=== PATIENT | female | born 1970 | race African-American/Black ===

== ENCOUNTER 2018-03-21 11:43 | Emergency (ER) | payer MEDICARE ==
--- NOTE | 2018-03-21 12:10 | ER Document Report ---
ED Dizziness/Weakness - General Chief Complaint: Weakness Stated Complaint: WEAKNESS Time Seen by Provider: 03/21/18 12:00 Notes: This is a 47-year-old female patient with multiple medical problems presents emergency department for evaluation of weakness. Here from [place]. Had multiple strokes in the past. Has had aneurysm. Has shunt. Has severe hypertension. Baseline renal failure. Not on dialysis. Chronic headaches. Noncompliant with medications. Denies any fever, chills, sweats. No difficulty with speech. No slurred speech. No focal weakness. Just feels tired. TRAVEL OUTSIDE OF THE [place] IN LAST 30 DAYS: No - HPI Patient complains to provider of: Weakness Quality of pain: No pain Severity: Mild Pain Level: 0 Associated symptoms: denies: Confused, Fainted, Headache, Lightheaded, Palpitations, Paralysis, Short of breath - Related Data Allergies/Adverse Reactions: Penicillins Allergy (Verified 03/21/18 11:45) Past Medical History - General Information source: Patient - Social History Smoking Status: Never Smoker Smoking Education Provided: No Drug Abuse: None Lives with: Alone Family History: Reviewed & Not Pertinent Review of Systems - Review of Systems Constitutional: No symptoms reported EENT: No symptoms reported Cardiovascular: No symptoms reported Respiratory: No symptoms reported Gastrointestinal: No symptoms reported Genitourinary: No symptoms reported Female Genitourinary: No symptoms reported Musculoskeletal: No symptoms reported Skin: No symptoms reported Hematologic/Lymphatic: No symptoms reported Neurological/Psychological: Weakness. denies: Confusion, Depression, Anxiety, Hallucinations Physical Exam - Vital signs Vitals: Pulse Resp BP Pulse Ox 83 18 148/105 H 100 03/21/18 11:50 03/21/18 11:50 03/21/18 11:50 03/21/18 11:50 Interpretation: Normal - General General appearance: Appears well, Alert - HEENT Head: Normocephalic, Atraumatic Eyes: Normal Pupils: PERRL - Respiratory Respiratory status: No respiratory distress Chest status: Nontender Breath sounds: Normal Chest palpation: Normal - Cardiovascular Rhythm: Regular Heart sounds: Normal auscultation Murmur: No - Abdominal Inspection: Normal Distension: No distension Bowel sounds: Normal Tenderness: Nontender Organomegaly: No organomegaly - Back Back: Normal, Nontender - Extremities General upper extremity: Normal inspection, Nontender, Normal color, Normal ROM , Normal temperature General lower extremity: Normal inspection, Nontender, Normal color, Normal ROM , Normal temperature, Normal weight bearing. No: Hadley's sign - Neurological Neuro grossly intact: Yes Cognition: Normal Orientation: AAOx4 [place] Coma Scale Eye Opening: Spontaneous [place] Coma Scale Verbal: Oriented [place] Coma Scale Motor: Obeys Commands Tabatha Coma Scale Total: 15 Speech: Normal Cranial nerves: Normal Cerebellar coordination: Normal Motor strength normal: LUE, RUE, LLE, RLE Additional motor exam normals: Equal director intelligence analysis programs. No: Pronator drift, Weakness Sensory: Normal - Psychological Associated symptoms: Normal affect, Normal mood - Skin Skin Temperature: Warm Skin Moisture: Dry Skin Color: Normal Course - Re-evaluation Re-evalutation: 03/21/18 14:25 Patient has complicated history. Based on renal insufficiency. Negative CT scan for any acute pathology. No head bleed. Has shunt in place but no midline shift. Patient is quite hypertensive. We will give her some medication at this time the lower blood pressure. Will attempt to get records from [place]. 03/21/18 14:51 Find nothing acute with this patient at this time other than some chronic findings. Has some chronic renal insufficiency but no hyperkalemia. No significant findings on CT scan which would represent an acute stroke. Physical exam findings do not support an acute stroke. Patient does have uncontrolled hypertension. Awaiting urinalysis results and will reassess at this time. Still do not have outside records. 03/21/18 15:46 Patient states that she has feels much better at this time. Admits that she has not been taking her clonidine which she normally does. Blood pressure was high and thinks this is why she was feeling weak all over. Also she admits now that she has been taking some Bactrim for chronic UTI. Has been unable to give us a urine sample but patient is adamant that she wants to go home. At this time I will refill her prescription for clonidine. Will attempt one more time to get a urinalysis if not we will discharge her at this time. - Vital Signs Vital signs: Temp Pulse Resp BP Pulse Ox 83 18 148/105 H 100 03/21/18 12:05 03/21/18 12:05 03/21/18 11:50 03/21/18 13:28 - Laboratory Result Diagrams: 03/21/18 13:06 03/21/18 13:06 Laboratory results interpreted by me: 03/21/18 03/21/18 13:06 13:06 WBC 2.9 L RBC 3.56 L Hgb 10.9 L Hct 32.6 L RDW 14.3 H Plt Count 125 L Sodium 145.4 H Chloride 110 H BUN 44 H Creatinine 2.71 H Est GFR ( Amer) 23 L Est GFR (Non-Af Amer) 19 L Direct Bilirubin 0.5 H Total Protein 8.6 H Discharge - Discharge Clinical Impression: Weakness Condition: Good Disposition: HOME, SELF-CARE Instructions: Weakness ([facility]), High Blood Pressure, Requiring Treatment ([facility]) Prescriptions: Clonidine HCl 0.1 mg PO DAILY 90 Days #90 tablet Referrals: ISMAEL MOTA MD [ACTIVE STAFF] - Follow up as needed
--- NOTE | 2018-03-21 12:15 | RADIOLOGY REPORT (SQ) ---
EXAM DESCRIPTION: CT HEAD WITHOUT COMPLETED DATE/TIME: 03/21/2018 12:00 pm REASON FOR STUDY: bed 19 stroke alert COMPARISON: None. TECHNIQUE: Axial images acquired through the brain without intravenous contrast. Images reviewed wi th bone, brain and subdural windows. Additional sagittal and coronal reconstructions were generated. Images stored on PACS. All CT scanners at this facility use dose modulation, iterative reconstruction, and/or weight based d osing when appropriate to reduce radiation dose to as low as reasonably achievable (ALARA). [facility]: Dose Right [facility]: CareDose [facility]: Dose Right [facility]: Teradose 4D [facility]: [facility] RADIATION DOSE: CT Rad equipment meets quality standard of care and radiation dose reduction techniq ues were employed. CTDIvol: 53.2 mGy. DLP: 1177 mGy-cm. mGy. LIMITATIONS: None. FINDINGS: VENTRICLES: Prominent. There is a shunt catheter entering from the left frontal lobe with the catheter tip in the 3rd ventricle. CEREBRUM: Geographic low attenuation in the right parietooccipital lobe most consistent with chronic infarct. No evidence of hemorrhage. No obvious acute infarct. CEREBELLUM: No masses. No hemorrhage. No alteration of density. No evidence for acute infarction. EXTRAAXIAL SPACES: No fluid collections. No masses. ORBITS AND GLOBE: No intra- or extraconal masses. Normal contour of globe without masses. CALVARIUM: No fracture. PARANASAL SINUSES: No fluid or mucosal thickening. SOFT TISSUES: No mass or hematoma. OTHER: No other significant finding. IMPRESSION: Old right MACHINE SPRAYER territory infarct. EVIDENCE OF ACUTE STROKE: NO. COMMENT: Pertinent positive or negative findings of the imaging study reported as a CRITICAL EXAM t o DR Snider at12:09 on 03/21/2018. Category of Critical Exam: Stroke alert Quality ID # [id number]: Final reports with documentation of one or more dose reduction techniques (e.g., Au tomated exposure control, adjustment of the mA and/or kV according to patient size, use of iterative reconstruction technique) TECHNICAL DOCUMENTATION: JOB ID: [id number] [employer]- All Rights Reserved Reading location - IP/workstation name: [email or web address]
--- NOTE | 2018-03-21 13:03 | RADIOLOGY REPORT (SQ) ---
EXAM DESCRIPTION: CHEST SINGLE VIEW COMPLETED DATE/TIME: 03/21/2018 12:33 pm REASON FOR STUDY: bed 19 stroke alert COMPARISON: None. EXAM PARAMETERS: NUMBER OF VIEWS: One view. TECHNIQUE: Single frontal radiographic view of the chest acquired. RADIATION DOSE: NA LIMITATIONS: None. FINDINGS: LUNGS AND PLEURA: No opacities, masses or pneumothorax. No pleural effusion. MEDIASTINUM AND HILAR STRUCTURES: No masses. Contour normal. HEART AND VASCULAR STRUCTURES: Heart normal in size. Normal vasculature. BONES: No acute findings. 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 OTHER: No other significant finding. IMPRESSION: NO ACUTE RADIOGRAPHIC FINDING IN THE CHEST. TECHNICAL DOCUMENTATION: JOB ID: [id number]- All Rights Reserved Reading location - IP/workstation name: [email or web address]
[2018-03-21 13:26] LABS: ABSOLUTE LYMPHOCYTES (AUTO) 0.6 10^3/uL (0.5-4.7); ABSOLUTE MONOCYTES (AUTO) 0.2 10^3/uL (0.1-1.4); ABSOLUTE NEUT (AUTO) 2.1 10^3/uL (1.7-8.2); BASOPHILS % (AUTO) 0.4 % (0-2); HEMATOCRIT 32.6 % (36.0-47.0); HEMOGLOBIN 10.9 g/dL (12.0-15.5); LYMPHOCYTES % (AUTO) 20.2 % (13-45); MEAN CORPUSCULAR HEMOGLOBIN 30.6 pg (27.0-33.4); MEAN CORPUSCULAR HGB CONC 33.4 g/dL (32.0-36.0); MEAN CORPUSCULAR VOLUME 92 fl (80-97); MONOCYTES % (AUTO) 8.4 % (3-13); PLATELET COUNT 125 10^3/uL (150-450); RED BLOOD COUNT 3.56 10^6/uL (3.72-5.28); RED CELL DISTRIBUTION WIDTH 14.3 % (11.5-14.0); TOTAL CELLS COUNTED % (AUTO) 100 %; WHITE BLOOD COUNT 2.9 10^3/uL (4.0-10.5)
[2018-03-21 13:33] LABS: INTERNATIONAL RATION (INR) 0.97; PROTHROMBIN TIME 13.4 SEC (11.4-15.4)
[2018-03-21 13:34] LABS: PARTIAL THROMBOPLASTIN TIME 31.4 SEC (23.5-35.8)
[2018-03-21 13:44] LABS: ALANINE AMINOTRANSFERASE 15 U/L (9-52); ALBUMIN 4.3 g/dL (3.5-5.0); ALKALINE PHOSPHATASE 46 U/L (38-126); ANION GAP 12 (5-19); ASPARTATE AMINO TRANSFERASE 19 U/L (14-36); BILIRUBIN,DIRECT 0.5 mg/dL (0.0-0.4); BILIRUBIN,TOTAL 0.9 mg/dL (0.2-1.3); BLOOD UREA NITROGEN 44 mg/dL (7-20); CALCIUM 9.7 mg/dL (8.4-10.2); CARBON DIOXIDE 23 mmol/L (22-30); CHLORIDE 110 mmol/L (98-107); CREATINE KINASE 35 U/L (30-135); GLUCOSE 88 mg/dL (75-110); POTASSIUM 4.2 mmol/L (3.6-5.0); SODIUM 145.4 mmol/L (137-145); TOTAL PROTEIN 8.6 g/dL (6.3-8.2)
[2018-03-21 14:02] LABS: CREATINE KINASE MB 0.84 ng/mL (<4.55)
[2018-03-21 14:03] LABS: TROPONIN I < 0.012 ng/mL
[2018-03-21] MEDS ORDERED: CLONIDINE HCL 0.1 MG TABLET PO ONE (14:22)
[2018-03-21 16:07] LABS: APPEARANCE,URINE SLIGHTLY-CLOUDY; BILIRUBIN,URINE NEGATIVE (NEGATIVE); COLOR,URINE YELLOW; GLUCOSE, URINE NEGATIVE (NEGATIVE); KETONES,URINE NEGATIVE (NEGATIVE); LEUKOCYTE ESTERASE,URINE SMALL (NEGATIVE); NITRITE,URINE NEGATIVE (NEGATIVE); PROTEIN,URINE 100 mg/dL (NEGATIVE); URINE SPECIFIC GRAVITY 1.013
[2018-03-21 16:17] VITALS: BP 152/78
--- NOTE | 2018-03-22 00:20 | EKG REPORT ---
SEVERITY:- ABNORMAL ECG - SINUS RHYTHM PROBABLE LVH WITH SECONDARY REPOL ABNRM : Confirmed by: Agueda Diaz MD 22-Mar-2018 00:19:47
== END 2018-03-21 16:27 | disposition home or self-care (01) ==
LOC: ER 11:43
DX: R53.1 Weakness (principal); Z88.0 Allergy status to penicillin
CPT/HCPCS: 93005; 99285; 36415; 87086; 82553; 82550; 85025; 85610; 85730; 87088; 80053; 81001; 84484; 87186; 71045; 70450; 93010; A9270

== ENCOUNTER 2018-04-03 20:11 | Emergency (ER) | payer MEDICARE, MEDICAID ==
--- NOTE | 2018-04-03 20:45 | ER Document Report ---
ED Medical Screen (RME) - General Chief Complaint: Possible Overdose Stated Complaint: POSSIBLE OD Time Seen by Provider: 04/03/18 20:41 Mode of Arrival: Ambulatory Information source: Patient, Relative Notes: Patient is a 39-year-old female who presents with her daughter and son-in-law for possible overdose. Family reports that they found her shaking with multiple medications and empty pill bottles near her. They report that she had a prescription for zaleplon filled yesterday, they report the prescription was 10 mg tablets, total quantity 15 tablets and reports that all of this medication is gone now. Patient also may have taken an unknown amount of her clonidine, unknown dosage. Family members report that she just moved here 2 weeks ago from [place] and has not been acting right. Family members report history of lupus, hypertension, seizures, brain shunt, hepatitis and multiple strokes. Patient is able to state her full name, her daughter's name and that we are at a hospital but is unsure of the date or what city we are in. Exam: Alert and oriented 2. Lung sounds clear to auscultation. Heart sounds S1-S2 present no ectopy noted. I have greeted and performed a rapid initial assessment of this patient. A comprehensive ED assessment and evaluation of the patient, analysis of test results and completion of the medical decision making process will be conducted by additional ED providers. Dictation of this chart was performed using voice recognition software; therefore, there may be some unintended grammatical errors. TRAVEL OUTSIDE OF THE [place] IN LAST 30 DAYS: No - Related Data Allergies/Adverse Reactions: Penicillins Allergy (Verified 03/21/18 11:45) Past Medical History - Social History Frequency of alcohol use: None Drug Abuse: None Renal/ Medical History: Denies: Hx Peritoneal Dialysis Physical Exam - Vital signs Vitals: Temp Pulse Resp BP Pulse Ox 99.9 F 118 H 16 224/131 H 100 04/03/18 20:25 04/03/18 20:25 04/03/18 20:25 04/03/18 20:25 04/03/18 20:25 Course - Vital Signs Vital signs: Temp Pulse Resp BP Pulse Ox 99.9 F 118 H 16 224/131 H 100 04/03/18 20:25 04/03/18 20:25 04/03/18 20:25 04/03/18 20:25 04/03/18 20:25
--- NOTE | 2018-04-03 22:45 | RADIOLOGY REPORT (SQ) ---
EXAM DESCRIPTION: CT HEAD WITHOUT COMPLETED DATE/TIME: 04/03/2018 10:23 pm REASON FOR STUDY: AMS COMPARISON: 03/21/2018 TECHNIQUE: Axial images acquired through the brain without intravenous contrast. Images reviewed wi th bone, brain and subdural windows. Additional sagittal and coronal reconstructions were generated. Images stored on PACS. All CT scanners at this facility use dose modulation, iterative reconstruction, and/or weight based d osing when appropriate to reduce radiation dose to as low as reasonably achievable (ALARA). [facility]: Dose Right [facility]: CareDose [facility]: Dose Right [facility]: Teradose 4D [facility]: [employer] RADIATION DOSE: CT Rad equipment meets quality standard of care and radiation dose reduction techniq ues were employed. CTDIvol: 55.2 mGy. DLP: 1505 mGy-cm. mGy. LIMITATIONS: None. FINDINGS: VENTRICLES: Normal size and contour. A ventriculoperitoneal shunt is present. CEREBRUM: No masses. No hemorrhage. No midline shift. No evidence for acute infarction. There is an old right parieto-occipital infarct. Few scattered areas of low density in the white matter most l ikely chronic small vessel ischemic changes. CEREBELLUM: No masses. No hemorrhage. No alteration of density. No evidence for acute infarction. EXTRAAXIAL SPACES: No fluid collections. No masses. ORBITS AND GLOBE: No intra- or extraconal masses. Normal contour of globe without masses. CALVARIUM: No fracture. PARANASAL SINUSES: No fluid or mucosal thickening. SOFT TISSUES: No mass or hematoma. OTHER: No other significant finding. IMPRESSION: Old right occipital infarct. Chronic microvascular ischemia. No acute intracranial conor ging findings. EVIDENCE OF ACUTE STROKE: NO. COMMENT: Quality ID # [id number]: Final reports with documentation of one or more dose reduction techniques (e.g., Automated exposure control, adjustment of the mA and/or kV according to patient size, use of iterative reconstruction technique) TECHNICAL DOCUMENTATION: JOB ID: [id number] [employer]- All Rights Reserved Reading location - IP/workstation name: [email or web address]
--- NOTE | 2018-04-03 22:52 | ER Document Report ---
ED General - General Chief Complaint: Possible Overdose Stated Complaint: POSSIBLE OD Time Seen by Provider: 04/03/18 20:41 Mode of Arrival: Ambulatory Notes: Patient is a 39-year-old female is brought in by family because of an overdose. Patient recently came here from [place]. She has a history of shunt. She is brought in by her daughter and son-in-law. They found that the patient had been overdosing on medications. She was recently prescribed a sleep medicine called Zaleplon. She is post of 15 pills and they are all gone. Prescription was just filled yesterday. She also has clonidine. They are unsure how many she took of the clonidine. They deny she has had a recent fevers. They do mention that she was seen here recently and diagnosed with a brain infection placed on some sort of medicine for this; however, when I review her records she was seen here approximately 2 weeks ago and placed on clonidine for hypertension. She was not placed on anything for brain infection and there is no mention of brain infection in the chart. She has not been vomiting. Son-in- law said that he found her not making sense and very somnolent. No other complaints at this time. History is difficult to obtain as the patient cannot contribute much to history and the family seems not 100% sure of her history. Patient's blood pressure is very high in triage. Family says that her blood pressure actually typically runs high like this. TRAVEL OUTSIDE OF THE [place] IN LAST 30 DAYS: No - Related Data Allergies/Adverse Reactions: Penicillins Allergy (Verified 03/21/18 11:45) Past Medical History - General Information source: Patient, Relative - Social History Smoking Status: Current Some Day Smoker Frequency of alcohol use: None Drug Abuse: None Family History: Reviewed & Not Pertinent Patient has suicidal ideation: No Patient has homicidal ideation: No - Past Medical History Cardiac Medical History: Reports: Hx Heart Attack, Hx Hypercholesterolemia, Hx Hypertension Neurological Medical History: Reports: Hx Seizures Renal/ Medical History: Denies: Hx Peritoneal Dialysis Review of Systems - Review of Systems Notes: My Normal Review Basic REVIEW OF SYSTEMS: CONSTITUTIONAL : Denies fever, chills, or sweats. Denies recent illness. EENT: Denies eye, ear, throat, or mouth pain or symptoms. Denies nasal or sinus congestion. CARDIOVASCULAR: Denies chest pain. RESPIRATORY: Denies cough, cold, or chest congestion. Denies shortness of breath, difficulty breathing, or wheezing. GASTROINTESTINAL: Denies abdominal pain. Denies nausea, vomiting, or diarrhea. MUSCULOSKELETAL: Denies neck or back pain or joint pain or swelling. SKIN: Denies rash or skin lesions. NEUROLOGICAL: Some altered mental status. Denies headache. Denies weakness or paralysis or loss of use of either side. Denies problems with gait or speech. Denies sensory or motor loss. PSYCHIATRIC: Patient denies suicidal thoughts. ALL OTHER SYSTEMS REVIEWED AND NEGATIVE. Physical Exam - Vital signs Vitals: Temp Pulse Resp BP Pulse Ox 99.9 F 118 H 16 224/131 H 100 04/03/18 20:25 04/03/18 20:25 04/03/18 20:25 04/03/18 20:25 04/03/18 20:25 - Notes Notes: General Appearance: Well nourished, alert, cooperative, no acute distress, no obvious discomfort. Patient is awake and alert. She does answer most questions appropriately. Vitals: reviewed, See vital signs table. Head: no swelling or tenderness to the head Eyes: PERRL, EOMI, Conjuctiva clear Mouth: No decreasd moisture Neck: Supple, no neck tenderness, No thyromegaly Lungs: No wheezing, No rales, No rhonci, No accessory muscle use, good air exchange bilaterally. Heart: Normal rate, Regular rythm, No murmur, no rub Abdomen: Normal BS, soft, No rigidity, No abdominal tenderness, No guarding, no rebound, no abdominal masses, no organomegaly Extremities: strength 5/5 in all extremities, good pulses in all extremities, no swelling or tenderness in the extremities, no edema. Skin: warm, dry, appropriate color, no rash Neuro: speech clear, oriented x 3, normal affect, responds appropriately to most questions appropriately. Renal nerves II through XII intact. Patient moves her extremities on her own. Psychiatric: When asked patient why she took medications she will not give a straight answer. She says that she does not know why she takes any medications. She denies being suicidal homicidal however she is very hesitant to give me a reason why she overdosed. Course - Re-evaluation Re-evalutation: 04/03/18 23:16 Patient's continues to have increasing blood pressure and hypertension. I will place her on a Cardene drip. Her altered mental status could be related to this. I am not convinced that all her altered mental status is related to an overdose. At this time I am not sure if her overdose was even intentional. Is not really clear. I do not suspect that she took the oral clonidine. The family seemed unsure if she actually overdosed on the clonidine as a said that her pills are in a packet so the bottles always empty so it is difficult to tell. The history is just not very clear. I am having him obtain a rectal temp to make sure there is no signs of infection. 04/04/18 00:36 Patient just vomited. She is complaining of a headache. I am concerned that maybe she could have a shunt malfunction. The patient herself cannot really tell me exactly why she has a shunt in place. She is on the nicardipine. Her blood pressure has been titrated from 265 down to 200 systolically. I have ordered a shunt series to further investigate her shunt. Called the daughter back. I told her what was going on. Asked her again if she knows why the patient has a shunt. It seems really unclear. The daughter says that she thinks the shunt was placed 6 months ago in [place]. She thinks it was because she was having brain bleeds due to hypertension but is not really sure of this. 04/04/18 03:11 Cardene drip is keeping the patient's systolic blood pressure around 180. I do not want to drop much further than this as I do not want to cause renal hyperperfusion in case there is increased intracranial pressure from shunt malfunction. I did speak with the hospitalist, Dr. Carmona, who agrees to accept the patient for transfer and requests I did speak with neurosurgery as well. I did speak with neurosurgery, Dr. Parish Godwin who agrees with the plan. - Vital Signs Vital signs: Temp Pulse Resp BP Pulse Ox 99.9 F 118 H 9 L 163/103 H 100 04/03/18 20:25 04/03/18 20:25 04/04/18 02:30 04/04/18 02:30 04/04/18 02:30 - Laboratory Result Diagrams: 04/03/18 23:15 04/04/18 00:53 Laboratory results interpreted by me: 08/06/18 08/06/18 08/07/18 23:02 23:15 00:53 RBC 3.40 L Hgb 10.5 L Hct 31.5 L Plt Count 126 L Seg Neutrophils % 86.6 H Lymphocytes % 8.6 L Sodium 148.3 H Chloride 110 H Carbon Dioxide 15 L Anion Gap 23 H BUN 39 H Creatinine 2.87 H Est GFR ( Amer) 21 L Est GFR (Non-Af Amer) 18 L Total Bilirubin 1.4 H Direct Bilirubin 0.6 H Total Protein 9.5 H Urine Protein >=500 H Urine Ketones 20 H Urine Blood MODERATE H Salicylates < 1.0 L Acetaminophen < 10 L - EKG Interpretation by Me Additional EKG results interpreted by me: 04/03/18 22:48 EKG is reviewed and interpreted by me. EKG shows sinus tachycardia with rate of [address] segment elevation or depression. No ischemic T-wave inversions. KS interval, QRS duration, QTc intervals are within normal range. Old EKG for comparison is from March 21, 2018. Discharge - Discharge Clinical Impression: Hypertensive emergency, S/P [employer] shunt Headache Qualifiers: Headache type: unspecified Headache chronicity pattern: acute headache Intractability: intractable Qualified Code(s): R51 - Headache Vomiting Qualifiers: Vomiting type: unspecified Vomiting Intractability: non-intractable Nausea presence: with nausea Qualified Code(s): R11.2 - Nausea with vomiting, unspecified Condition: Stable Disposition: [facility]
[2018-04-03 23:31] LABS: AMORPHOUS SEDIMENT,URINE TRACE /HPF; APPEARANCE,URINE SLIGHTLY-CLOUDY; BILIRUBIN,URINE NEGATIVE (NEGATIVE); COLOR,URINE YELLOW; GLUCOSE, URINE NEGATIVE (NEGATIVE); KETONES,URINE 20 mg/dL (NEGATIVE); LEUKOCYTE ESTERASE,URINE NEGATIVE (NEGATIVE); NITRITE,URINE NEGATIVE (NEGATIVE); PROTEIN,URINE >=500 mg/dL (NEGATIVE); URINE SPECIFIC GRAVITY 1.013; UROBILINOGEN,URINE NEGATIVE mg/dL (<2.0)
[2018-04-03 23:46] LABS: URINE AMPHETAMINES SCREEN NEGATIVE; URINE BARBITURATES SCREEN NEGATIVE; URINE BENZODIAZEPINES SCREEN NEGATIVE; URINE COCAINE SCREEN NEGATIVE; URINE MARIJUANA (THC) SCREEN NEGATIVE; URINE METHADONE SCREEN NEGATIVE; URINE PHENCYCLIDINE SCREEN NEGATIVE
[2018-04-03 23:56] LABS: ABSOLUTE LYMPHOCYTES (AUTO) 0.7 10^3/uL (0.5-4.7); ABSOLUTE MONOCYTES (AUTO) 0.3 10^3/uL (0.1-1.4); ABSOLUTE NEUT (AUTO) 6.6 10^3/uL (1.7-8.2); BASOPHILS % (AUTO) 0.4 % (0-2); HEMATOCRIT 31.5 % (36.0-47.0); HEMOGLOBIN 10.5 g/dL (12.0-15.5); LYMPHOCYTES % (AUTO) 8.6 % (13-45); MEAN CORPUSCULAR HEMOGLOBIN 30.7 pg (27.0-33.4); MEAN CORPUSCULAR HGB CONC 33.1 g/dL (32.0-36.0); MEAN CORPUSCULAR VOLUME 93 fl (80-97); MONOCYTES % (AUTO) 4.4 % (3-13); PLATELET COUNT 126 10^3/uL (150-450); SEGMENTED NEUTROPHILS % (AUTO) 86.6 % (42-78); TOTAL CELLS COUNTED % (AUTO) 100 %; WHITE BLOOD COUNT 7.6 10^3/uL (4.0-10.5)
[2018-04-04] MEDS ORDERED: ONDANSETRON HCL INJ/PF 4 MG/2 ML SDV IV ONE ×2 (00:36→21:45)
[2018-04-04] MEDS: NICARDIPINE HCL RTU, ISO-OS 20 MG/200 ML RTUINJ IV PRN ×2 (00:59→05:23)
[2018-04-04 01:29] LABS: ALANINE AMINOTRANSFERASE 17 U/L (9-52); ALKALINE PHOSPHATASE 63 U/L (38-126); ASPARTATE AMINO TRANSFERASE 26 U/L (14-36); BILIRUBIN,DIRECT 0.6 mg/dL (0.0-0.4); BILIRUBIN,TOTAL 1.4 mg/dL (0.2-1.3); BLOOD UREA NITROGEN 39 mg/dL (7-20); CALCIUM 9.7 mg/dL (8.4-10.2); GLUCOSE 88 mg/dL (75-110); POTASSIUM 4.9 mmol/L (3.6-5.0); TOTAL PROTEIN 9.5 g/dL (6.3-8.2)
[2018-04-04 01:35] LABS: CARBON DIOXIDE 15 mmol/L (22-30); CHLORIDE 110 mmol/L (98-107); SODIUM 148.3 mmol/L (137-145)
[2018-04-04 01:37] LABS: ACETAMINOPHEN < 10 ug/mL (10-30); ALCOHOL < 10 mg/dL (NONE DETECTED); ANION GAP 23 (5-19); SALICYLATE < 1.0 mg/dL (2.0-20.0)
[2018-04-04] MEDS ORDERED: HYDROMORPHONE HCL INJ/PF 2 MG/ML AMPULE IV ONE (01:47)
--- NOTE | 2018-04-04 01:54 | RADIOLOGY REPORT (SQ) ---
EXAM DESCRIPTION: Shuntogram series COMPLETED DATE/TME: 04/04/2018 00:19 CLINICAL HISTORY: 47 years, Female, altered mental status COMPARISON: None. NUMBER OF VIEWS: Five views TECHNIQUE: AP skull, AP cervical spine, AP chest, AP abdomen LIMITATIONS: None. FINDINGS: AP shunt tube in the left frontal destin hole with the tip in the midline. There are radiolucent connectors over the left calvarium. No evidence of kinking or fracturing of the shunt tubing over the left neck left chest or upper abdomen. Tubing is coiled in the left upper quadrant. IMPRESSION: No evidence of fracturing or kinking of the shunt tubing Shunt tube is coiled in the left upper quadrant 2010 [employer]- All Rights Reserved
--- NOTE | 2018-04-04 13:45 | EKG REPORT ---
SEVERITY:- ABNORMAL ECG - SINUS TACHYCARDIA BETTY, CONSIDER BIATRIAL ABNORMALITIES PROBABLE LEFT VENTRICULAR HYPERTROPHY : Confirmed by: Agueda Diaz MD 04-Apr-2018 13:45:12
[2018-04-04 21:45] VITALS: BP 185/113
--- NOTE | 2018-04-04 21:51 | ER Document Report ---
Doctor's Note Notes: 04/04/18 21:50 Patient's transport is now here. Patient has complained of a headache at times today. She is also complained of some abdominal pains and has had some vomiting. At this time, her heart rate about 120. Lungs are clear. The abdomen is soft throughout. I do not feel there is any evidence of an acute abdomen. Patient says she is nauseated. I am giving her some Zofran 4 mg IV. Patient appears to be stable for transfer. Brayan Garcia MD
== END 2018-04-04 22:01 | disposition short-term general hospital (02) ==
LOC: ER 20:11
DX: R51 Headache (principal); R11.2 Nausea with vomiting, unspecified; I16.0 Hypertensive urgency; R10.9 Unspecified abdominal pain; I10 Essential (primary) hypertension; E78.00 Pure hypercholesterolemia, unspecified; Z98.2 Presence of cerebrospinal fluid drainage device; I25.2 Old myocardial infarction
CPT/HCPCS: 93005; 96376; 99285; 51701; 96375; 96365; 96366; 36415; 82962; 80307 ×4; 85025; 80053; 81001; 75809; 70450; 93010; J1170; J2405; J3490